=== PATIENT | male | born 1985 | race Caucasian/White ===

== ENCOUNTER 2020-10-26 11:08 | Emergency (ER) | payer BC, OTHER, MEDICAID, SELFPAY ==
[2020-10-26 11:22] VITALS: BP 105/78; PULSE 70; RESP 16; TEMP 36.4; O2SAT 99; BMI 25.7
--- NOTE | 2020-10-26 12:46 | ED_ITS ---
HPI - Recheck/Abnormal Lab/Rx General Chief Complaint: Recheck/Abnormal Lab/Rx Stated Complaint: hot blood, severe pain Time Seen by Provider: 10/26/20 12:40 Source: patient Mode of arrival: Ambulatory Limitations: no limitations History of Present Illness HPI narrative: This is a 35-year-old male who comes department with a sensation and that he has hospitalized in his lower half of his body with pain at skin lev el. Patient states he started [facility] as directed [facility] based on concern for possible exposure. Patient states he has not had any positive HIV testing. Patient states that he started at with his 1st dose in the last 24 hours and felt like it began almost immediately after he took it. He does not have a sensation that it is going through his blood in his upper half of his body. He does any symptoms in his airway, no chest pain no shortness of breath. States his skin was very itchy but he does not have any skin changes. Patient states he is otherwise healthy. No daily medications besides acyclovir. Patient does not smoke. He drinks alcohol typically 2 drinks or less daily and uses marijuana intermittently. No other illicits. Related Data Previous Rx's Medication Instructions Recorded hydrocodone 5 mg-acetaminophen 325 1 tab PO Q6H PRN #7 tab 10/26/20 mg tablet prednisone 50 mg tablet 50 mg PO DAILY #5 tab 10/26/20 Allergies Allergy/AdvReac Type Severity Reaction Status Date / Time Penicillins Allergy Intermediate Hives Verified 10/26/20 11:27 Review of Systems Review of Systems ROS Unobtainable: All systems reviewed & are unremarkable except as noted in HPI and below Patient History Social History Smoking Status: Never smoker Smoking Status: Never smoker alcohol intake frequency: 0-2 drinks per day Substance Use Type: marijuana Exam Narrative Exam Narrative: GEN: well nourished, well appearing male, alert and oriented x 3, patient appears to be in mild distress. HEENT: Atraumatic, pupils are equal round reactive to light, extraocular movements are intact, nares are clear, TMs are clear with no fluid, there is no conjunctival pallor. Throat is clear without any exudates, erythema, tonsillar enlargement or uvular deviation, no stridor. No hoarseness or change of voice. HEART: Regular rate and rhythm without murmur, clicks, rubs. LUNGS:Lungs clear to auscultation, no wheezes, rales, crackles, chest moves symmetrically ABD:bowel sounds normal, soft, non-tender, no guarding, rebound, rigidity, no masses noted, no hepatosplenomegaly :No CVA tenderness MSCL: Non-tender, no muscle atrophy, muscles strength 5/5 upper and lower extremities, full range of motion, NEURO:CN 2-12 intact, sensation normal SKIN: No rash, erythema or other skin changes noted. Initial Vital Signs Initial Vital Signs: Vital Signs Temperature 97.5 F L 10/26/20 11:22 Pulse Rate 70 10/26/20 11:22 Respiratory Rate 16 10/26/20 11:22 Blood Pressure 105/78 10/26/20 11:22 Pulse Oximetry 99 10/26/20 11:22 Course Orders Ordered: Discontinued Medications Diphenhydramine HCl (Diphenhydramine 25 Mg Tablet) 50 mg PO NOW ONE Stop: 10/26/20 11:30 Last Admin: 10/26/20 11:31 Dose: Not Given Documented by: URBANO Ketorolac Tromethamine (Ketorolac 30 Mg/Ml Vial) 30 mg IM NOW ONE Stop: 10/26/20 13:16 Last Admin: 10/26/20 13:20 Dose: 30 mg Documented by: RAMON Prednisone (Prednisone 20 Mg Tablet) 60 mg PO NOW ONE Stop: 10/26/20 13:16 Last Admin: 10/26/20 13:20 Dose: 60 mg Documented by: RAMON Vital Signs Vital signs: Vital Signs - 8 hr 10/26/20 11:22 Temperature 97.5 F L Pulse Rate 70 Respiratory Rate 16 Blood Pressure 105/78 Pulse Oximetry 99 Discharge Plan Departure Patient Disposition: Home Clinical Impression: Medication adverse effect Instructions: DI for Adverse Drug Reaction -- Other Activity Restrictions/Additional Instructions: Stop your medication. I believe you are having a reaction. Continue steroids daily until gone. If you find the Benadryl helpful you can take 1-2 tablets every 6 hours as needed for symptoms. You may take pain medication as prescribed. Prescription sent to [facility] in [place] and discuss about other potential medication options in the next 24-48 hours. They can give you additional options and alternative prescription as needed. Please return for new or worsening symptoms, lightheadedness or passing out, tightness or shortness of your breath, chest pain or abdominal pain, vomiting, new swelling in her extremities, skin changes such as rash, hives, very dark or tea-colored urine or other new or concerning symptoms. Prescriptions: New prednisone 50 mg tablet 50 mg PO DAILY Qty: 5 RF: 0 hydrocodone-acetaminophen 5-325 mg tablet 1 tab PO Q6H PRN (Reason: pain) Qty: 7 RF: 0
[2020-10-26] MEDS: KETOROLAC 30 MG/ML VIAL IM (13:20)
[2020-10-26] MEDS: predniSONE 20 MG TABLET 60 MG PO (13:20)
== END 2020-10-26 13:38 | disposition home or self-care (01) ==
PROVIDERS: Emergency Provider Emergency Medicine
DX: R52 Pain, unspecified (principal); T37.5X5A Adverse effect of antiviral drugs, initial encounter
CPT/HCPCS: 96372; 99283; J1885